=== PATIENT | male | born 1935 | race Caucasian/White ===

== ENCOUNTER 2019-06-20 10:14 | Inpatient (IN) | payer MEDICARE ==
[~2019-06-20] VITALS: Ht 175.4 cm; Wt 77.3 kg
[~2019-06-20 10:14] MED LIST: ASPRIN; AVODART 0.5MG0.5 MG PO; FISH OIL CONC1000 MG PO; [UNRECOGNIZED DRUG - OTHER] PO
[2019-08-20] VITALS (10 sets, daily range): BP systolic 96–157; BP diastolic 55–81; PULSE 55–83; TEMP 97.2–97.5
--- NOTE | 2019-08-20 07:20 | NUR ---
Patient to room from admissions. Assessment completed. IV started in left hand by HARRIETT Xiong. Consent reviewed and signed by patient.
[2019-08-20] MEDS ORDERED: FERROUS SU325 MG/TAB PO (07:32)
[2019-08-20] MEDS ORDERED: FOLIC ACID 11 MG/TA1 PO (07:32)
[2019-08-20] MEDS ORDERED: VITAMIN C500 MG PO (07:33)
[2019-08-20] MEDS ORDERED: REFRESH TEARS 330 ML OP (07:34)
--- NOTE | 2019-08-20 11:22 | NUR ---
Patient to room from PACU via bed. Patient is drowsy. Denies pain at this time. Per the patient he is not able to feel from his right knee down still. Dressing to right knee CDI. Denies needs currently.
--- NOTE | 2019-08-20 12:02 | NUR ---
Sitting up in bed to eat clear liquid lunch. Denies pain. Patient still not able to moves right foot/toes. Denies further needs.
--- NOTE | 2019-08-20 13:05 | NUR ---
Lying in bed with eyes closed. Respirations even and unlabored. No signs or symptoms of discomfort noted at this time.
--- NOTE | 2019-08-20 14:02 | NUR ---
Lying in bed with eyes closed. Respirations even and unlabored. No signs or symptoms of discomfort noted.
--- NOTE | 2019-08-20 15:00 | NUR ---
Lying in bed with eyes closed. Opens eyes when talked to. Denies pain. CMS intact to right lower extremity. Patient denies additional needs at this time.
--- NOTE | 2019-08-20 15:41 | NUR ---
Evidence Technician met with patient to discuss discharge planning. Patient lives in [place] with his Rody (ph#[phone]) and sees Dr. Dennison for primary care. Patient obtains medications from [facility] and has a walker at home. Patient reports he is normally independent with ADLS. Patient states that he plans on going home upon discharge. SW contacted patient's Rody who confirmed that discharge plan is for home as long as patient continues to do well. Rody advised that they have completed DPOA-HC documents that designate their daughter, Nathalie Rivas. SW did not locate copy in EMR. SW will continue to follow to monitor for any discharge needs.
--- NOTE | 2019-08-20 17:18 | NUR ---
Patient attempts to use urinal, no success. Bladder scan performed and 532mL noted. Straight cath performed and 700mL of clear dark yellow urine received. Cath removed. Patient tolerates without difficulty. Assisted patient to sitting up in bed and provided dinner tray. Patient denies further needs at this time.
[2019-08-21] VITALS (7 sets, daily range): BP systolic 106–125; BP diastolic 51–76; PULSE 59–80; TEMP 97.4–98.5
--- NOTE | 2019-08-21 02:46 | NUR ---
Patient bladder scanned at this time, 235 mL noted.
--- NOTE | 2019-08-21 03:50 | NUR ---
Patient has been able to rest most of the night. Patient alert and oriented. Patient states she has a full, pressure feeling around her neck and shoulders, states she looks "puffy". Patient is able to tolerate clear liquids and is able to ambulate in room independently. Patient has been using dilaudid for pain relief at this time. Patient did have some high blood pressures earlier on in the shift, labetalol 100mg PO was given, manual pressures improved to 154/78. Patient has 6 lap sites, all clean, dry and intact.
--- NOTE | 2019-08-21 04:59 | NUR ---
Patient resting in bed this shift. Patient was able to pee 300 at 0400. Patient got up and walked this shift. No complaints of nausea, patient tolerating PO fluids.
[2019-08-21 06:58] LABS: HEMATOCRIT 37.5 % (42.0-52.0); HEMOGLOBIN 12.2 g/dl (13.5-18.0)
--- NOTE | 2019-08-21 07:14 | NUR ---
Sitting up in bed getting ready to eat breakfast. Patient says that he had a lot of pain last night, a little better this morning. Rates pain to right knee 8/10. Dressing to right knee CDI. Patient denies needs at this time.
--- NOTE | 2019-08-21 08:56 | NUR ---
Patient up to brush teeth. Having some pain in right knee. Sits in recliner. Dressing change performed to right knee. Incision edges well approximated, no redness or discharge, mild knee swelling noted. Patient denies further needs at this time.
--- NOTE | 2019-08-21 09:57 | NUR ---
Rating pain 8/10 in right knee and requests pain medication. Administered Roxicodone as prescribed. Patient sitting up in recliner at this time. Denies further needs.
--- NOTE | 2019-08-21 11:10 | NUR ---
Lying in bed with eyes closed. Opens eyes when spoken to. Says pain is okay resting in bed, rates 7/10, but increases with activity. Ice pack applied to right knee. Patient denies further needs at this time.
--- NOTE | 2019-08-21 11:37 | NUR ---
Administer Tramadol as prescribed at this time due to pain in right knee. Patient sitting up in bed eating lunch. Denies further needs.
--- NOTE | 2019-08-21 17:15 | NUR ---
Pain in right knee at a 4/10, patient would like something for pain. Administered Tramadol as prescribed. Patient sits up in bed to get ready to eat dinner. Denies further needs at this time.
--- NOTE | 2019-08-21 18:08 | NUR ---
Patient sitting up in bed. Rating pain in right knee 3/10. Requests stool softener. Will administer MOM as prescribed.
--- NOTE | 2019-08-21 20:00 | NUR ---
Report received, assumed care for power and recovery shift engineer. A&Ox3. Assessment complete. VS stable. Denies pain/nausea/shortness of breath. INT to right hand flushes without difficulty. Voiding without difficulty. +flatus. Dressing to right [id number]. Fresh ice pack applied. TEDs/SCDs bilat. Denies questions/concerns. Call light in reach. Will monitor.
[2019-08-22 04:25] VITALS: BP 136/72; PULSE 81; TEMP 98.1
--- NOTE | 2019-08-22 07:01 | NUR ---
REPORT FROM IZA LORENZANA.
[2019-08-22 07:06] LABS: HEMOGLOBIN 12.9 g/dl (13.5-18.0)
[2019-08-22 07:33] VITALS: BP 150/71; PULSE 78; TEMP 97.6
--- NOTE | 2019-08-22 09:51 | NUR ---
PT UP FOR BREAKFAST CURRENTLY WORKING WITH OT. DRESSING TO RIGHT KNEE CDI. PAIN WELL CONTROLLED WITH PO MEDS.
[2019-08-22 11:37] VITALS: BP 143/67; PULSE 72; TEMP 98
[2019-08-22] MEDS ORDERED: ROXICODONE 55 MG/TAB PO (12:09)
[2019-08-22] MEDS ORDERED: ASPI325T6 PO (12:09)
[2019-08-22] MEDS ORDERED: SENOKOT S 50 MG1 TAB PO (12:10)
[2019-08-22] MEDS ORDERED: ULTRAM 50MG TAB50 MG PO (12:10)
--- NOTE | 2019-08-22 12:24 | NUR ---
First visit from the grain buyer. No needs right now.
--- NOTE | 2019-08-22 14:10 | NUR ---
DISCHARGE INSTRUCTIONS REVIEWED WITH PATIENT. QUESTIONS SOLICITED AND ANSWERED. PATIENT TAKEN TO FRONT BY WHEEL CHAIR.
== END 2019-08-22 15:00 | disposition home or self-care (01) | DRG 470 ==
LOC: JCC 08-20 07:10
PROVIDERS: ADMIT Orthopaedic Surgery
PROC: 0SRC069 Replacement of Right Knee Joint with Oxidized Zirconium on Polyethylene Synthetic Substitute, Cemented, Open Approach (ICD-10-PCS; principal; 2019-08-20 08:00)
DX: M17.11 Unilateral primary osteoarthritis, right knee (principal); M21.161 Varus deformity, not elsewhere classified, right knee; M25.761 Osteophyte, right knee
CPT/HCPCS: A9284; C1713; C1776; J0690; J1885; J2405; J2704; J7030; J7120